=== PATIENT | male | born 2000 | race Two or more races ===

== ENCOUNTER 2024-08-10 09:39 | Emergency (ER) | payer OTHER ==
[~2024-08-10] VITALS: Ht 175.3 cm; Wt 61.2 kg
[2024-08-10] MEDS ORDERED: 0.9 % SODIUM CHLORIDE 1,000 ML IV STA (10:01)
[2024-08-10] MEDS ORDERED: ONDANSETRON HCL 2 MG/ML VIAL IV STA (10:01)
[2024-08-10] MEDS ORDERED: ONDANSETRON HCL 2 MG/ML VIAL ONE (10:16)
[2024-08-10 10:56] LABS: HEMATOCRIT 44.4 % (39.0-48.0); MEAN CELL VOLUME 88.7 fL (80.0-100.00); MEAN CORPUSCULAR HEMOGLOBIN 29.9 pg (27.00-32.0); MEAN CORPUSCULAR HGB CONC 33.7 g/dl (32.0-36.0); PLATELET COUNT 243 K/uL (150-450); RED BLOOD COUNT 5.01 M/uL (4.00-6.00); RED CELL DISTRIBUTION WIDTH 12.8 % (11.5-14.5)
[2024-08-10 11:04] LABS: PH,URINE 7.5 (5.0-8.0); URINE APPEARANCE Clear; URINE BILIRRUBIN Negative (NEGATIVE); URINE BLOOD Negative; URINE COLOR Yellow; URINE GLUCOSE Negative (NEGATIVE); URINE LEUKOCYTE Negative; URINE NITRATE Negative; URINE PROTEIN Trace (NEGATIVE); URINE UROBILINOGEN 0.2 E.U./dl
[2024-08-10 11:08] LABS: URINE BACTERIA 23.9 uL (0.0-1933); URINE EPITHELIAL CELLS 2.3 uL (0.0-38.8); URINE RBC 16.7 uL (0.0-20.8); URINE WBC 2.4 uL (0.0-23.2)
[2024-08-10 11:16] LABS: URINE KETONE 40 (NEGATIVE)
[2024-08-10 11:32] LABS: CALCIUM 9.3 mg/dL (8.5-10.1); CREATININE SERUM 0.76 mg/dL (0.70-1.30); POTASSIUM 4.11 mEq/L (3.5-5.1)
== END 2024-08-10 13:21 | disposition home or self-care (01) ==
LOC: ER 09:40
PROVIDERS: Emergency Medicine
DX: K29.70 Gastritis, unspecified, without bleeding (principal)